=== PATIENT | male | born 1975 | race Caucasian/White ===

== ENCOUNTER 2024-02-16 09:28 | Emergency (ER) | payer OTHER ==
[2024-02-16 09:39] VITALS: BP 121/91; PULSE 57; RESP 18; TEMP 98.2; BMI 25.4
[2024-02-16] MEDS ORDERED: LIDOCAINE 5% TOPICAL PATCH ONE (10:18)
[2024-02-16] MEDS ORDERED: KETOROLAC TROMETHAMINE 15 MG/ML VIAL ONE (10:18)
[2024-02-16] MEDS: KETOROLAC TROMETHAMINE 15 MG/ML VIAL IM ONE (10:22)
[2024-02-16] MEDS: LIDOCAINE 5% TOPICAL PATCH TP ONE (10:23)
[2024-02-16] MEDS ORDERED: ACETAMINOPHEN 325 MG TABLET (FP) PO ONE (11:20)
[2024-02-16] MEDS ORDERED: LIDOCAINE PATCH REMOVAL MC ONE (22:00)
== END 2024-02-16 12:50 | disposition home or self-care (01) ==
LOC: FER 09:28
PROC: 3E0133Z Introduction of Anti-inflammatory into Subcutaneous Tissue, Percutaneous Approach (ICD-10-PCS; principal; 2024-02-16)
DX: M54.2 Cervicalgia (principal); R20.2 Paresthesia of skin; M54.50 Low back pain, unspecified; M25.552 Pain in left hip; V40.5XXA Car driver injured in collision with pedestrian or animal in traffic accident, initial encounter
CPT/HCPCS: 72125-TC; 73502-TC-LT-FY; 99284-25